=== PATIENT | male | born 1970 | race Caucasian/White ===

== ENCOUNTER → 2024-01-16 13:58 | Outpatient (CLI) | payer OTHER, SELFPAY ==
--- NOTE | 2024-01-16 14:00 | DI.RAD.S_ITS ---
PROCEDURE: XR ELBOW LT MIN 3V INDICATIONS: Left elbow pain TECHNIQUE: 3 views of the elbow were acquired. COMPARISON: None. FINDINGS: Bones: No fractures or dislocations. No suspicious bony lesions. Soft tissues: No elbow joint effusion. No suspicious soft tissue calcifications. IMPRESSION: No acute bony abnormality or significant joint effusion. Dictated by: Jozef Villa M.D. on 01/16/2024 at 15:10 Approved by: Jozef Villa M.D. on 01/16/2024 at 15:10
== END ==
PROVIDERS: Referring Provider Nurse Practitioner Family; Visit Provider Nurse Practitioner Family
DX: M25.522 Pain in left elbow (principal)
CPT/HCPCS: 73080